=== PATIENT | male | born 1955 | race Caucasian/White ===

== ENCOUNTER 2018-10-04 16:53 | Emergency (ER) | payer OTHER ==
[2018-10-04] MEDS ORDERED: TDAP [DIPH/PERTUSSIS/TET] 0.5 ML VIAL IM ONE ×2 (17:30→17:37)
[2018-10-04] MEDS ORDERED: LIDOCAINE HCL/PF 1% 30 ML VIAL TP ONE (17:30)
[2018-10-04] MEDS ORDERED: LIDOCAINE HCL/MPF 1% 30 ML VIAL IJ ONE (17:37)
== END 2018-10-04 19:21 | disposition home or self-care (01) ==
DX: S61.211A Laceration without foreign body of left index finger without damage to nail, initial encounter (principal); W45.8XXA Other foreign body or object entering through skin, initial encounter; Y93.89 Activity, other specified; Y92.89 Other specified places as the place of occurrence of the external cause; Y99.8 Other external cause status
CPT/HCPCS: 12001; 73140; 90471; 90715; 99283; A6403 ×2; J3490 ×2

== ENCOUNTER 2018-10-06 15:31 | Emergency (ER) | payer OTHER ==
[~2018-10-06] VITALS: Ht 188 cm; Wt 77.1 kg
[2018-10-06 15:41] VITALS: BP 119/65
== END 2018-10-06 16:20 | disposition home or self-care (01) ==
LOC: ER 15:34
DX: S61.219D Laceration without foreign body of unspecified finger without damage to nail, subsequent encounter (principal); X58.XXXD Exposure to other specified factors, subsequent encounter

== ENCOUNTER 2018-10-14 14:20 | Emergency (ER) | payer OTHER ==
[~2018-10-14] VITALS: Ht 180.3 cm; Wt 72.1 kg
[2018-10-14 14:35] VITALS: BP 134/85
== END 2018-10-14 15:46 | disposition home or self-care (01) ==
LOC: ER 14:22
DX: S61.211D Laceration without foreign body of left index finger without damage to nail, subsequent encounter (principal); Z60.2 Problems related to living alone; X58.XXXD Exposure to other specified factors, subsequent encounter